=== PATIENT | female | born 1995 | race Caucasian/White ===

== ENCOUNTER 2016-09-20 02:43 | Emergency (ER) | payer SELFPAY ==
[2016-09-20 03:45] VITALS: BP 141/83
== END 2016-09-20 03:45 | disposition home or self-care (01) ==
LOC: ED 02:43
DX: J02.9 Acute pharyngitis, unspecified (principal)
CPT/HCPCS: J0561

== ENCOUNTER 2018-01-09 22:30 | Emergency (ER) | payer OTHER ==
[~2018-01-09] VITALS: Ht 167.6 cm; Wt 72.6 kg
[2018-01-09 22:34] VITALS: BP 133/76; Ht 167.6 cm; Wt 72.6 kg
== END 2018-01-09 23:23 | disposition other institution (70) ==
LOC: ED 22:30
DX: Z02.89 Encounter for other administrative examinations (principal)

== ENCOUNTER 2018-09-17 17:14 | Emergency (ER) | payer OTHER ==
[~2018-09-17] VITALS: Ht 167.6 cm; Wt 112.5 kg
[2018-09-17 17:31] VITALS: Ht 167.6 cm; Wt 112.5 kg
[2018-09-17 18:23] VITALS: BP 131/69
== END 2018-09-17 18:23 | disposition home or self-care (01) ==
LOC: ED 17:14
DX: L50.9 Urticaria, unspecified (principal); F34.9 Persistent mood [affective] disorder, unspecified
CPT/HCPCS: J7512

== ENCOUNTER 2019-01-20 19:53 | Emergency (ER) | payer SELFPAY ==
[~2019-01-20] VITALS: Ht 165.1 cm; Wt 121.6 kg
[2019-01-20 19:58] VITALS: Ht 165.1 cm; Wt 121.6 kg
[2019-01-20 21:53] VITALS: BP 146/97
== END 2019-01-20 21:53 | disposition home or self-care (01) ==
LOC: ED 19:53
DX: K64.4 Residual hemorrhoidal skin tags (principal); R51 Headache; Z98.890 Other specified postprocedural states
CPT/HCPCS: J1885

== ENCOUNTER 2019-04-28 19:38 | Emergency (ER) | payer MEDICAID ==
[~2019-04-28] VITALS: Ht 167.6 cm; Wt 117.0 kg
[2019-04-28 19:50] VITALS: Ht 167.6 cm; Wt 117.0 kg
[2019-04-28 21:55] VITALS: BP 144/81
== END 2019-04-28 21:55 | disposition home or self-care (01) ==
LOC: ED 19:38
DX: S90.32XA Contusion of left foot, initial encounter (principal); S09.8XXA Other specified injuries of head, initial encounter; R21 Rash and other nonspecific skin eruption; F15.10 Other stimulant abuse, uncomplicated; X58.XXXA Exposure to other specified factors, initial encounter; Y93.89 Activity, other specified; Y92.89 Other specified places as the place of occurrence of the external cause; Y99.8 Other external cause status
CPT/HCPCS: 90715; J1885; Q0092